=== PATIENT | female | born 1985 | race Caucasian/White ===

== ENCOUNTER 2017-04-11 13:29 | Emergency (ER) | payer BC ==
[2017-04-11 13:46] VITALS: BP 121/74
--- NOTE | 2017-04-11 13:52 | UC ---
Shoulder Pain HPI - HPI Summary HPI Summary: Left anterior shoulder pain, began after she slept on her shoulder last evening hurts to raise arm and cannot hold left arm out to the side - History of Current Complaint Chief Complaint: UCUpperExtremity Stated Complaint: LEFT ARM PAIN Time Seen by Provider: 04/11/17 13:46 Hx Obtained From: Patient Hx Last Menstrual Period: one month ago ?: No Onset/Duration: Sudden Onset, Lasting Days - 1 Timing: Constant Severity Initially: Moderate Severity Currently: Moderate Location Of Pain: Is Discrete @ Pain Intensity: 8 Pain Scale Used: 0-10 Numeric Character: Aching, Throbbing Aggravating Factor(s): Movement Related History: Dominant Hand Right - Allergies/Home Medications Allergies/Adverse Reactions: Allergies Allergy/AdvReac Type Severity Reaction Status Date / Time No Known Allergies Allergy Verified 04/11/17 13:40 Home Medications: Home Medications Escitalopram Oxalate [Lexapro 10 mg] 1 tab PO DAILY 04/11/17 [History Confirmed 04/11/17] Methylphenidate HCl [Ritalin] 18 mg PO DAILY 04/11/17 [History Confirmed ] PMH/Surg Hx/FS Hx/Imm Hx Previously Healthy: Yes - Add Psychological History: Anxiety - Surgical History Surgical History: Yes Surgery Procedure, Year, and Place: 2006 - Family History Known Family History: Positive: None - Social History Occupation: Employed Full-time Lives: With Family Alcohol Use: Occasionally Substance Use Type: None Smoking Status (MU): Never Smoked Tobacco Review of Systems Constitutional: Negative Skin: Negative Eyes: Negative ENT: Negative Respiratory: Negative Cardiovascular: Negative Gastrointestinal: Negative Genitourinary: Negative Motor: Negative Neurovascular: Negative Musculoskeletal: Arthralgia - left anterior shoulder pain Neurological: Negative Psychological: Negative Is Patient Immunocompromised?: No All Other Systems Reviewed And Are Negative: Yes Physical Exam Triage Information Reviewed: Yes Appearance: Well-Appearing, No Pain Distress, Well-Nourished Vital Signs: Initial Vital Signs Temp 97.6 F 04/11/17 13:37 Pulse 81 04/11/17 13:37 Resp 12 04/11/17 13:37 BP 121/74 04/11/17 13:37 Pulse Ox 100 04/11/17 13:37 Vital Signs Reviewed: Yes Eye Exam: Normal Eyes: Positive: Conjunctiva Clear ENT Exam: Normal ENT: Positive: Normal ENT inspection, Hearing grossly normal. Negative: Trismus , Muffled voice, Hoarse voice Dental Exam: Normal Neck exam: Normal Neck: Positive: Supple, Nontender Respiratory Exam: Normal Respiratory: Positive: Chest non-tender, No respiratory distress, No accessory muscle use Cardiovascular Exam: Normal Cardiovascular: Positive: RRR, Pulses Normal, Brisk Capillary Refill Musculoskeletal Exam: Normal Musculoskeletal: Positive: Strength Intact, No Edema, ROM Limited @ - left shoulder Neurological Exam: Normal Neurological: Positive: Alert, Muscle Tone Normal Psychological Exam: Normal Skin Exam: Normal Diagnostics - Radiology No standard instances Xray Interpretation: No Acute Changes Radiology Interpretation Completed By: ED Physician, Radiologist Shoulder Course/Dx - Course Assessment/Plan: Naproxen, flexeril, ice, follow with pcp/ortho prn - Differential Dx/Diagnosis Provider Diagnoses: Left shoulder pain Discharge - Discharge Plan Condition: Stable Disposition: HOME Prescriptions: Naproxen Sodium [Naproxen Sodium 500 MG TAB] 500 mg PO BID PRN #30 tab PRN Reason: Pain tiZANidine TAB* [Zanaflex TAB*] 2 mg PO TID PRN #30 tab PRN Reason: muscle spasm Patient Education Materials: Shoulder Pain (ED) Referrals: Devendra Mcelroy MD [Medical Doctor] - 3 Days
--- NOTE | 2017-04-11 14:49 | RAD ---
INDICATION: Left shoulder pain COMPARISON: None TECHNIQUE: Routine frontal, Y and axial views were obtained. FINDINGS: The bony structures, joint spaces, and soft tissues are normal for age. IMPRESSION: NEGATIVE EXAMINATION
== END 2017-04-11 15:15 | disposition home or self-care (01) ==
LOC: UCEAST 13:29
DX: M25.512 Pain in left shoulder (principal); Z32.02 Encounter for pregnancy test, result negative
CPT/HCPCS: 84702; 99213; G0463

== ENCOUNTER 2021-06-25 10:10 | Inpatient (IN) ==
[2021-06-25] MEDS ORDERED: Lactated Ringers 1000 ml BAG 1,000 ML IV ONE (10:19)
[2021-06-25] MEDS ORDERED: Buffered Lidocaine 1% SYRIN 1 ml INTRADERM ONE (10:19)
[2021-06-25 12:29] LABS: Urine Benzodiazepine Screen None Detected (None Detect); Urine Cannabinoids Screen None Detected (None Detect); Urine Opiates Screen None Detected (None Detect)
[2021-06-25] MEDS ORDERED: Dinoprostone 10 MG VAG.SUPP VAGINAL ONE (19:57)
[2021-06-25] MEDS ORDERED: Promethazine INJ(RESTRICTED) 25 MG/ML 1 ml VIAL IV PRN (21:48)
[2021-06-25] MEDS ORDERED: Nalbuphine 10 MG/ML 1 ML VIAL IV PRN (21:48)
[2021-06-26] MEDS ORDERED: Oxytocin in LR 20 UNITS/1,000 ML BAG IVPB SCH (14:00)
[2021-06-26 14:29] LABS: ABS Basophils 0.1 10^3/ul (0-0.2); ABS Lymphocytes 1.7 10^3/ul (1.0-4.8); ABS Monocytes 0.7 10^3/ul (0-0.8); ABS Neutrophils 7.3 10^3/ul (1.5-7.7); Eosinophil % 0.3 %; Hematocrit 41 % (35-47); Hemoglobin 14.1 g/dL (12.0-16.0); Lymphocyte % 17.5 %; Mean Corpuscular HGB Conc 34 g/dL (31-36); Mean Corpuscular Hemoglobin 30 pg (27-31); Mean Corpuscular Volume 88 fL (80-97); Mean Platelet Volume 9.2 fL (7.4-10.4); Nucleated Red Blood Cells % 0.1; Platelet Count 161 10^3/uL (150-450); Red Blood Count 4.66 10^6 /uL (3.70-4.87); Red Cell Distribution Width 13 % (10-15)
[2021-06-26] MEDS ORDERED: OBEPIDURAL 250 ML EPIDURAL ONE (22:38)
[2021-06-26] MEDS ORDERED: Phenylephrine 40 mcg/mL 10mL (400mcg) SYRINGE IV PUSH PRN ×2 (23:36)
[2021-06-26] MEDS ORDERED: Lactated Ringers 1000 ml BAG 1,000 ML IV ONE (23:36)
[2021-06-26] MEDS ORDERED: Sodium Citrate/Citric Acid LIQ 15 ML UDC PO PRN (23:36)
[2021-06-26] MEDS ORDERED: Lactated Ringers 1000 ml BAG 500 ML IV PRN ×2 (23:36)
[2021-06-26] MEDS ORDERED: EPHEDrine (Pressors) 50 MG/ML VIAL IV PUSH PRN ×2 (23:36)
[2021-06-26] MEDS ORDERED: Lactated Ringers 1000 ml BAG 1,000 ML IV SCH (23:45)
[2021-06-26] MEDS ORDERED: OBEPIDURAL 250 ML EPIDURAL SCH (23:45)
[2021-06-27 00:28] LABS: Urine Appearance Clear; Urine Bilirubin Negative (Negative); Urine Blood Negative (Negative); Urine Color Yellow; Urine Glucose Negative (Negative); Urine Ketones Negative (Negative); Urine Nitrite Negative (Negative); Urine Protein Negative (Negative); Urine Specific Gravity 1.012 (1.002-1.030); Urine Urobilinogen Negative (Negative)
[2021-06-27] MEDS: Lactated Ringers 1000 ml BAG 1,000 ML IV SCH ×2 (00:52→05:20)
[2021-06-27] MEDS ORDERED: D5LR 1000 ml BAG 500 ML IV ONE (06:30)
[2021-06-27] MEDS ORDERED: Lidocaine 1% VIAL 10 MG/ML VIAL ONE (11:37)
[2021-06-27] MEDS ORDERED: OBEPIDURAL 250 ML EPIDURAL ONE (16:17)
[2021-06-27] MEDS ORDERED: ceFOXitin 2 GM IVPREMIX 2 GM/50 ML BAG ONE (17:46)
[2021-06-27] MEDS ORDERED: Lidocaine 2% w/ EPI 1:200,000 MPF 20 ML SDV VIAL ONE (18:19)
[2021-06-27] MEDS ORDERED: Morphine PF AMP (0.5MG/ML) 5 MG/10 ML AMP ONE (18:39)
[2021-06-27] MEDS ORDERED: Oxytocin 10 UNITS/ML 1 ML VIAL ONE (18:43)
[2021-06-27] MEDS ORDERED: fentaNYL 100 mcg/2 ml 50 MCG/ML VIAL ONE (18:47)
[2021-06-27] MEDS ORDERED: DiMENhydriNATE IV 50 mg/ml 1 ml VIAL IV PUSH PRN (19:24)
[2021-06-27] MEDS ORDERED: Naloxone 4 mg VIAL (10 ml) 2 MG in NS 0.9% 250 ml 250 ML IV PRN (19:24)
[2021-06-27] MEDS ORDERED: Ondansetron 4 mg VIAL 2 MG/ML 2 ml VIAL IV PRN (19:24)
[2021-06-27] MEDS ORDERED: Metoclopramide 5 MG/ML VIAL (10 mg) IV PRN (19:24)
[2021-06-27] MEDS ORDERED: Naloxone 0.4 mg VIAL 0.4 mg/ml 1 ml VIAL IV PRN (19:24)
[2021-06-27] MEDS ORDERED: Acetaminophen IV 1 GM/100ML 100 ML IV ONE (20:07)
[2021-06-27] MEDS ORDERED: Witch Hazel PAD JAR TOPICAL PRN (20:26)
[2021-06-27] MEDS ORDERED: Dibucaine 1% OINT 28.35 GM TUBE PR PRN (20:26)
[2021-06-27] MEDS ORDERED: Glycerin ADULT 2.4 gm SUPP PR PRN (20:26)
[2021-06-27] MEDS ORDERED: Oxytocin in LR 20 UNITS/1,000 ML BAG IVPB SCH (21:00)
[2021-06-27] MEDS ORDERED: Lactated Ringers 1000 ml BAG 1,000 ML IV SCH (21:00)
[2021-06-28 06:59] LABS: ABS Lymphocytes 1.2 10^3/ul (1.0-4.8); ABS Monocytes 0.9 10^3/ul (0-0.8); ABS Neutrophils 13.1 10^3/ul (1.5-7.7); Hematocrit 30 % (35-47); Hemoglobin 10.3 g/dL (12.0-16.0); Lymphocyte % 7.7 %; Mean Corpuscular HGB Conc 35 g/dL (31-36); Mean Corpuscular Hemoglobin 31 pg (27-31); Mean Corpuscular Volume 89 fL (80-97); Mean Platelet Volume 10.3 fL (7.4-10.4); Platelet Count 131 10^3/uL (150-450); Red Blood Count 3.36 10^6 /uL (3.70-4.87); Red Cell Distribution Width 13 % (10-15); White Blood Count 15.3 10^3/uL (3.5-10.8)
[2021-06-30 08:57] VITALS: BP 119/72
== END 2021-06-30 14:25 | disposition home or self-care (01) | DRG 540 ==
LOC: MCHOBOUT 10:10 → MCHOB 10:57
PROVIDERS: ADMIT Midwife; ATTEND Obstetrics & Gynecology